=== PATIENT | female | born 1995 | race Caucasian/White ===

== ENCOUNTER 2016-06-08 11:00 | Emergency (ER) | payer OTHER ==
[2016-06-08 11:18] VITALS: BP 108/66
[2016-06-08] MEDS ORDERED: NS 0.9% 1000 ML* 1,000 ML IV ONE (11:34)
[2016-06-08] MEDS ORDERED: Ketorolac INJ* 30 MG/ML 1 ML VIAL IV PUSH ONE (11:35)
[2016-06-08] MEDS ORDERED: Ondansetron INJ* 2 MG/ML VIAL IV ONE (11:35)
[2016-06-08 12:27] LABS: Urine Bilirubin Negative (Negative); Urine Glucose Negative (Negative); Urine Nitrite Negative (Negative)
[2016-06-08 12:29] LABS: UR Preg Internal Control QC Line Present
--- NOTE | 2016-06-12 12:00 | ED ---
Esthela Fernandes Claudia, scribed for Savannah Cedeño MD on 06/08/16 at 1132 . Abdominal Pain/Female - HPI Summary HPI Summary: 20 year old female presents to the ED with suprapubic cramping which she descries as menstrual pain. Pt also admits to nausea, dizziness, lightheadedness. She states this am when she woke up she began having Sx. Pt notes that she is due for her menstrual cycle within the past few days. Pt notes some vaginal bleeding this am which has stopped. Pt is not taking control and states it is abnormal that the vaginal bleeding stopped since the first day of her period she usually has more bedding. She notes that her menstrual cycle usually accompanies cramping. Pt notes her nausea is aggravated with standing. Pt denies any sharp radiating abd pain. She also notes that she has not eaten anything today and has only had small amounts of water intake lately. - History of Current Complaint Chief Complaint: EDAbdPain Stated Complaint: ABD PAIN Time Seen by Provider: 06/08/16 11:25 Hx Obtained From: Patient Onset/Duration: Sudden Onset, Lasting Hours, Still Present Timing: Constant Pain Intensity: 6 Pain Scale Used: 0-10 Numeric Location: Suprapubic Radiates: No Character: Cramping Associated Signs and Symptoms: Positive: Diaphoresis, Dizzy, Vaginal Bleeding, Nausea. Negative: Fever, Back Pain, Vomiting, Diarrhea Allergies/Adverse Reactions: Allergies Allergy/AdvReac Type Severity Reaction Status Date / Time Sulfa Antibiotics Allergy Diarrhea Verified 06/08/16 12:26 PMH/Surg Hx/FS Hx/Imm Hx Previously Healthy: Yes Endocrine/Hematology History: Denies: Hx Diabetes Cardiovascular History: Denies: Hx Hypertension Respiratory History: Denies: Hx Asthma Infectious Disease History: No Infectious Disease History: Denies: Traveled Outside the [place] in Last 30 Days - Family History Known Family History: Positive: Diabetes - Social History Occupation: Student Alcohol Use: None Substance Use Type: Reports: None Smoking Status (MU): Never Smoked Tobacco Review of Systems Negative: Fever, Chills Eyes: Negative ENT: Negative Cardiovascular: Negative Respiratory: Negative Positive: Abdominal Pain, Nausea. Negative: Vomiting, Diarrhea Negative: burning, dysuria Musculoskeletal: Negative Skin: Negative Neurological: Other - dizziness Psychological: Normal All Other Systems Reviewed And Are Negative: Yes Physical Exam Triage Information Reviewed: Yes Vital Signs On Initial Exam: Initial Vitals Temp Pulse Resp BP Pulse Ox 97.7 F 82 16 108/66 100 06/08/16 11:13 06/08/16 11:13 06/08/16 11:13 06/08/16 11:13 06/08/16 11:13 Vital Signs Reviewed: Yes Appearance: Positive: Well-Appearing, No Pain Distress Skin: Positive: Warm, Skin Color Reflects Adequate Perfusion, Dry Eyes: Positive: EOMI, ALPHONSE ENT: Positive: Pharynx normal, TMs normal Neck: Positive: Supple, Nontender Respiratory/Lung Sounds: Positive: Clear to Auscultation, Breath Sounds Present. Negative: Rales, Rhonchi, Wheezes Cardiovascular: Positive: RRR. Negative: Murmur, Rub Abdomen Description: Positive: Nontender, Soft Bowel Sounds: Positive: Present Musculoskeletal: Positive: Strength/ROM Intact. Negative: Edema Left, Edema Right Neurological: Positive: Sensory/Motor Intact, Alert, Oriented to Person Place, Time, CN Intact II-III Psychiatric: Positive: Affect/Mood Appropriate - Tamela Coma Scale Coma Scale Total: 15 Diagnostics - Vital Signs Vital Signs Temp Pulse Resp BP Pulse Ox 06/08/16 11:13 97.7 F 82 16 108/66 100 - Laboratory Lab Results: Lab Results 06/08/16 Range/Units 12:08 Urine Color Yellow Urine Appearance Clear Urine pH 6.0 (5-9) Ur Specific [place] 1.021 (1.010-1.030) Urine Protein Negative (Negative) Urine Ketones Negative (Negative) Urine Blood Negative (Negative) Urine Nitrate Negative (Negative) Urine Bilirubin Negative (Negative) Urine Urobilinogen Negative (Negative) Ur Leukocyte Esterase Negative (Negative) Urine Glucose Negative (Negative) Urine Test Negative (Negative) Lab Statement: Any lab studies that have been ordered have been reviewed, and results considered in the medical decision making process. Abdominal Pain Fem Course/Dx - Diagnoses Provider Diagnoses: Dysmenorrhea Discharge - Discharge Plan Condition: Improved Disposition: HOME Patient Education Materials: Menstruation (ED) Referrals: [facility] SANDY Spence [Primary Care Provider] - 2 Days Additional Instructions: Take Naproxen or Midol at home for pain. Continue for the next 2-3 days or until symptoms persist. Heating pads will also help with pain relief. Drink plenty of fluids and eat a healthy diet, stay away from foods high in fat and diary. Follow-up with primary care provider is recommended to discuss other options of control to help with symptoms. If symptoms worsen or do not improve please seek medical attention promptly. The documentation as recorded by the Esthela farah Claudia accurately reflects the service I personally performed and the decisions made by me, Savannah Cedeño MD.
== END 2016-06-08 13:16 | disposition home or self-care (01) ==
LOC: ED 11:00
DX: N94.6 Dysmenorrhea, unspecified (principal); R10.9 Unspecified abdominal pain; R11.0 Nausea; R42 Dizziness and giddiness
CPT/HCPCS: 81003; 81025; 96374; 96375; 99283; J1885; J2405